=== PATIENT | male | born 2000 | race Caucasian/White ===

== ENCOUNTER 2022-01-28 11:32 | Emergency (ER) | payer OTHER ==
[2022-01-28] MEDS ORDERED: SODIUM CHLORIDE 0.9% 1,000 ML IV STA (11:38)
[2022-01-28] MEDS ORDERED: DIPH,PERTUS(ACELL)TETVAC-LF 0.5 ML VIAL IM ONE (11:39)
--- NOTE | 2022-01-28 11:50 | ED ---
Trauma HPI - General Source: patient, family, EMS, RN notes reviewed Mode of arrival: EMS - History of Present Illness MD Complaint: other <Navin Montiel - Last Filed: 01/28/22 15:00> <Jazmin Morales - Last Filed: 01/28/22 16:47> - General Stated Complaint: [facility] Hand injury Time Seen by Provider: 01/28/22 11:32 - History of Present Illness Initial Comments: 21-year-old male with a benign past medical history who got his right index and middle fingers caught in a rolling press prior to arrival at work it took approximately 1 hour and 15 minutes to get him free from the press. No other injuries reported he complains of pain to his right index finger and per paramedics there was laceration of the right thumb right middle finger. No other injury reported no complaints of nausea vomiting fevers chills sweats he's not sure when his last tetanus shot was he is got no ALLERGIES to medications (Navin Montiel) - Related Data Previous Rx's Medication Instructions Recorded Cephalexin [Keflex] 500 mg PO Q6HR 1 Days #40 cap 01/28/22 HYDROcodone/APAP 7.5-325MG [[place] 1 tab PO Q6HR PRN 3 Days #12 tab 01/28/22 7.5-325] Allergies Allergy/AdvReac Type Severity Reaction Status Date / Time No Known Allergies Allergy Verified 01/28/22 13:11 Review of Systems ROS Other: All systems not noted in ROS Statement are negative. <Navin Montiel - Last Filed: 01/28/22 15:00> ROS Other: All systems not noted in ROS Statement are negative. <Jazmin Morales - Last Filed: 01/28/22 16:47> ROS Statement: Those systems with pertinent positive or pertinent negative responses have been documented in the HPI. General Exam General appearance: alert, in no apparent distress, anxious Head exam: Present: atraumatic, normocephalic, normal inspection Eye exam: Present: normal appearance, PERRL, EOMI. Absent: scleral icterus, conjunctival injection, periorbital swelling ENT exam: Present: normal exam, mucous membranes moist Neck exam: Present: normal inspection, full ROM. Absent: tenderness, meningismus, lymphadenopathy Respiratory exam: Present: normal lung sounds bilaterally. Absent: respiratory distress, wheezes, rales, rhonchi, stridor Cardiovascular Exam: Present: regular rate, normal rhythm, normal heart sounds. Absent: systolic murmur, diastolic murmur, rubs, gallop, clicks Extremities exam: Present: tenderness, other (Reevaluation the right hand reveals proximal T7 70 laceration of the/back to the right middle finger no active bleeding seen at this time abrasion seen over the PIP dorsal aspect of the ring finger no active bleeding evidence of some discoloration to the right index finger with partially 3 cm mushtaq). Absent: full ROM Neurological exam: Present: alert (Some diminished sensation to the right index finger), oriented X3, CN II-XII intact Psychiatric exam: Present: normal affect, anxious Skin exam: Present: warm, dry. Absent: intact, normal color <Navin Montiel - Last Filed: 01/28/22 15:00> - General Exam Comments Initial Comments: This a well-developed well-nourished awake alert oriented times female with a [place] Coma Scale of 15 (Navin Montiel) Course Vital Signs 01/28/22 01/28/22 01/28/22 11:38 12:17 13:20 Temperature 98.2 F Pulse Rate 80 78 Respiratory 18 18 Rate Blood Pressure 132/67 137/75 118/72 O2 Sat by Pulse 97 98 96 Oximetry 01/28/22 01/28/22 15:00 16:00 Temperature Pulse Rate 80 69 Respiratory 18 18 Rate Blood Pressure 130/78 117/68 O2 Sat by Pulse 98 96 Oximetry Procedures - Laceration Laceration #1 Consent Obtained: verbal consent Indication: laceration Site: hand Size (cm): 2 (2cm laceration on the dorsal aspect of the right third finger and 4cm laceration to the ventral aspect of the right pointer finger.) Description: linear, flap, contaminated Depth: simple, single layer Sedation/Analgesia: none Anesthetic Used: lidocaine 1% Anesthesia Technique: local infiltration, nerve block Amount (mls): 7 Pre-repair: wound explored, irrigated extensively, extensive debridement Type of Sutures: nylon Size of Sutures: 5-0 Number of Sutures: 20 (5 in the middle finger and 15 in the pointer finger) Technique: simple, interrupted <Jazmin Morales - Last Filed: 01/28/22 16:47> Medical Decision Making - Lab Data Result diagrams: 01/28/22 11:58 01/28/22 11:58 - Radiology Data Radiology results: report reviewed (Imaging reviewed no evidence of acute fractures identified. Some soft tissue injury noted), image reviewed <Navin Montiel - Last Filed: 01/28/22 15:00> - Lab Data Result diagrams: 01/28/22 11:58 01/28/22 11:58 <Jazmin Morales - Last Filed: 01/28/22 16:47> - Medical Decision Making I did reevaluate patient on multiple occasions he is getting improvement function and sensation to his extremities the lacerations are being repaired by Kinj[facility]. Patient will follow-up [facility] to be seen by Ty Landeros after 1 PM. Elevation and ice bundle dressing oral antibiotics as well as pain medication. Begin on reevaluation patient is having improved sensation still diminished sensation to the right index finger but the other portion of the hand and fingers have intact sensation and capillary refill is less than 2 seconds in all digits. (Navin Montiel) - Lab Data Lab Results 01/28/22 01/28/22 01/28/22 Range/Units 11:58 11:58 11:58 WBC 4.9 (3.8-10.6) k/uL RBC 5.19 (4.30-5.90) m/uL Hgb 16.2 (13.0-17.5) gm/dL Hct 46.8 (39.0-53.0) % MCV 90.1 (80.0-100.0) fL MCH 31.2 (25.0-35.0) pg MCHC 34.7 (31.0-37.0) g/dL RDW 13.4 (11.5-15.5) % Plt Count 209 (150-450) k/uL MPV 7.9 Neutrophils % 73 % Lymphocytes % 19 % Monocytes % 5 % Eosinophils % 1 % Basophils % 0 % Neutrophils # 3.6 (1.3-7.7) k/uL Lymphocytes # 0.9 L (1.0-4.8) k/uL Monocytes # 0.2 (0-1.0) k/uL Eosinophils # 0.0 (0-0.7) k/uL Basophils # 0.0 (0-0.2) k/uL PT 10.6 (9.0-12.0) sec INR 1.0 (<1.2) APTT 19.9 L (22.0-30.0) sec Sodium 138 (137-145) mmol/L Potassium 4.6 (3.5-5.1) mmol/L Chloride 102 (98-107) mmol/L Carbon Dioxide 28 (22-30) mmol/L Anion Gap 8 mmol/L BUN 16 (9-20) mg/dL Creatinine 0.92 (0.66-1.25) mg/dL Est GFR (CKD-EPI)AfAm >90 (>60 ml/min/1.73 sqM) Est GFR (CKD-EPI)NonAf >90 (>60 ml/min/1.73 sqM) Glucose 93 (74-99) mg/dL Plasma Lactic Acid Vinh (0.7-2.0) mmol/L Calcium 9.7 (8.4-10.2) mg/dL Total Bilirubin 0.8 (0.2-1.3) mg/dL AST 26 (17-59) U/L ALT 26 (4-49) U/L Alkaline Phosphatase 92 (38-126) U/L Creatine Kinase (55-170) U/L Total Protein 7.8 (6.3-8.2) g/dL Albumin 4.7 (3.5-5.0) g/dL Blood Type Blood Type Confirm Blood Type Recheck Bld Type Recheck Status Antibody Screen Spec Expiration Date 01/28/22 01/28/22 01/28/22 Range/Units 11:58 11:58 11:58 WBC (3.8-10.6) k/uL RBC (4.30-5.90) m/uL Hgb (13.0-17.5) gm/dL Hct (39.0-53.0) % MCV (80.0-100.0) fL MCH (25.0-35.0) pg MCHC (31.0-37.0) g/dL RDW (11.5-15.5) % Plt Count (150-450) k/uL MPV Neutrophils % % Lymphocytes % % Monocytes % % Eosinophils % % Basophils % % Neutrophils # (1.3-7.7) k/uL Lymphocytes # (1.0-4.8) k/uL Monocytes # (0-1.0) k/uL Eosinophils # (0-0.7) k/uL Basophils # (0-0.2) k/uL PT (9.0-12.0) sec INR (<1.2) APTT (22.0-30.0) sec Sodium (137-145) mmol/L Potassium (3.5-5.1) mmol/L Chloride (98-107) mmol/L Carbon Dioxide (22-30) mmol/L Anion Gap mmol/L BUN (9-20) mg/dL Creatinine (0.66-1.25) mg/dL Est GFR (CKD-EPI)AfAm (>60 ml/min/1.73 sqM) Est GFR (CKD-EPI)NonAf (>60 ml/min/1.73 sqM) Glucose (74-99) mg/dL Plasma Lactic Acid Vinh 1.4 (0.7-2.0) mmol/L Calcium (8.4-10.2) mg/dL Total Bilirubin (0.2-1.3) mg/dL AST (17-59) U/L ALT (4-49) U/L Alkaline Phosphatase (38-126) U/L Creatine Kinase 187 H (55-170) U/L Total Protein (6.3-8.2) g/dL Albumin (3.5-5.0) g/dL Blood Type B Positive Blood Type Confirm Blood Type Recheck No Previous Record Bld Type Recheck Status CABO Indicated Antibody Screen NEGATIVE Spec Expiration Date 01/31/2022235701/28/22 Range/Units 12:03 WBC (3.8-10.6) k/uL RBC (4.30-5.90) m/uL Hgb (13.0-17.5) gm/dL Hct (39.0-53.0) % MCV (80.0-100.0) fL MCH (25.0-35.0) pg MCHC (31.0-37.0) g/dL RDW (11.5-15.5) % Plt Count (150-450) k/uL MPV Neutrophils % % Lymphocytes % % Monocytes % % Eosinophils % % Basophils % % Neutrophils # (1.3-7.7) k/uL Lymphocytes # (1.0-4.8) k/uL Monocytes # (0-1.0) k/uL Eosinophils # (0-0.7) k/uL Basophils # (0-0.2) k/uL PT (9.0-12.0) sec INR (<1.2) APTT (22.0-30.0) sec Sodium (137-145) mmol/L Potassium (3.5-5.1) mmol/L Chloride (98-107) mmol/L Carbon Dioxide (22-30) mmol/L Anion Gap mmol/L BUN (9-20) mg/dL Creatinine (0.66-1.25) mg/dL Est GFR (CKD-EPI)AfAm (>60 ml/min/1.73 sqM) Est GFR (CKD-EPI)NonAf (>60 ml/min/1.73 sqM) Glucose (74-99) mg/dL Plasma Lactic Acid Vinh (0.7-2.0) mmol/L Calcium (8.4-10.2) mg/dL Total Bilirubin (0.2-1.3) mg/dL AST (17-59) U/L ALT (4-49) U/L Alkaline Phosphatase (38-126) U/L Creatine Kinase (55-170) U/L Total Protein (6.3-8.2) g/dL Albumin (3.5-5.0) g/dL Blood Type Blood Type Confirm B Positive Blood Type Recheck Bld Type Recheck Status Antibody Screen Spec Expiration Date Disposition Is patient prescribed a controlled substance at d/c from ED?: Yes When asked, does pt state using other controlled substances?: No If prescribed controlled substance>3 days was MAPS reviewed?: Prescribed <3 Days If opioid is for acute pain is fill amount 7 days or less?: Yes If Rx opioid, was Start Talking consent form obtained?: Yes Decision Date: 01/28/22 Decision Time: 15:01 <Navin Montiel - Last Filed: 01/28/22 15:00> <Jazmin Morales - Last Filed: 01/28/22 16:47> Clinical Impression: Crushing injury of right hand, Finger laceration, Contusion of right hand including fingers Disposition: HOME SELF-CARE Condition: Good Additional Instructions: Follow-up tomorrow with [facility] after 1 PM and [facility] office. Elevation, ice, bundle dressing. Prescriptions: Cephalexin [Keflex] 500 mg PO Q6HR 1 Days #40 cap HYDROcodone/APAP 7.5-325MG [[place] 7.5-325] 1 tab PO Q6HR PRN 3 Days #12 tab PRN Reason: Pain Referrals: None,Stated [Primary Care Provider] - 1-2 days Yanelis Burnham DO [Doctor of Osteopathic Medicine] - 1-2 days
[2022-01-28] MEDS ORDERED: HYDROmorphone 1 MG/ML 1 ML SYRINGE IVP STA ×2 (12:00→13:29)
[2022-01-28 12:15] LABS: Basophils % (A) 0 %; Eosinophils % (A) 1 %; HCT 46.8 % (39.0-53.0); HGB 16.2 gm/dL (13.0-17.5); Lymphocytes # (A) 0.9 k/uL (1.0-4.8); Lymphocytes % (A) 19 %; MCH 31.2 pg (25.0-35.0); MCHC 34.7 g/dL (31.0-37.0); MCV 90.1 fL (80.0-100.0); Mean Platelet Volume 7.9; Monocytes # (A) 0.2 k/uL (0-1.0); Monocytes % (A) 5 %; Neutrophils # (A) 3.6 k/uL (1.3-7.7); Neutrophils % (A) 73 %; Platelet Count 209 k/uL (150-450); RBC 5.19 m/uL (4.30-5.90); RDW 13.4 % (11.5-15.5); WBC 4.9 k/uL (3.8-10.6)
[2022-01-28 12:18] VITALS: RESP 18
[2022-01-28 12:25] LABS: ALT 26 U/L (4-49); AST 26 U/L (17-59); African American GFR (CKD) >90 (>60 ml/min/1.73 sqM); Albumin 4.7 g/dL (3.5-5.0); Alkaline Phosphatase 92 U/L (38-126); Anion Gap 8 mmol/L; Blood Urea Nitrogen 16 mg/dL (9-20); Calcium 9.7 mg/dL (8.4-10.2); Carbon Dioxide 28 mmol/L (22-30); Chloride 102 mmol/L (98-107); Glucose 93 mg/dL (74-99); Non-African American GFR(CKD) >90 (>60 ml/min/1.73 sqM); Potassium 4.6 mmol/L (3.5-5.1); Sodium 138 mmol/L (137-145); Total Bilirubin 0.8 mg/dL (0.2-1.3); Total Protein 7.8 g/dL (6.3-8.2)
--- NOTE | 2022-01-28 12:27 | XR ---
EXAMINATION TYPE: XR hand complete RT DATE OF EXAM: 01/28/2022 CLINICAL HISTORY: Pain after crushing injury. TECHNIQUE: Frontal, lateral and oblique images of the right hand are obtained. COMPARISON: None. FINDINGS: Incomplete extension of the fourth and fifth fingers makes evaluation at this level slight ly suboptimal. No acute displaced fracture in the right hand is clearly seen. Moderate to severe soft tissue swelling over the second finger with more mild soft tissue swelling throughout the third thro ugh fifth fingers is present. IMPRESSION: As above.
[2022-01-28 12:31] LABS: Prothrombin Time 10.6 sec (9.0-12.0)
[2022-01-28 12:43] LABS: Partial Thromboplastin Time 19.9 sec (22.0-30.0)
[2022-01-28] MEDS ORDERED: LIDOCAINE 1% INJ 10MG/ML (5 ML VIAL-PF) SQ ONE ×2 (13:08→15:23)
[2022-01-28] MEDS ORDERED: HYDROcodone/APAP 5-325MG 1 EACH TAB PO STA (16:21)
[2022-01-28] MEDS ORDERED: BACITRACIN OINT 1 EACH PACKET TOPICAL ONE (16:23)
[2022-01-28 16:45] LABS: Amphetamine Screen,Urine Not Detected (NotDetected); Barbiturate Screen,Urine Not Detected (NotDetected); Benzodiazepines Screen,Urine Not Detected (NotDetected); Cocaine Screen,Urine Not Detected (NotDetected); Methadone Screen, Urine Not Detected (NotDetected); Opiate Screen,Urine Detected (NotDetected); Oxycodone Screen, Urine Not Detected (NotDetected); Phencyclidine Screen,Urine Not Detected (NotDetected); Tricyclic Antidepressant,Urine Not Detected (NotDetected); Urn Cannabinoid Scrn Detected (NotDetected)
[2022-01-28 16:46] VITALS: BP 119/74; PULSE 76; TEMP 98.4
== END 2022-01-28 16:46 | disposition home or self-care (01) ==
LOC: EC 11:32
DX: S67.20XA Crushing injury of unspecified hand, initial encounter (principal); S60.221A Contusion of right hand, initial encounter; S67.21XA Crushing injury of right hand, initial encounter; S61.219A Laceration without foreign body of unspecified finger without damage to nail, initial encounter; W23.0XXA Caught, crushed, jammed, or pinched between moving objects, initial encounter
CPT/HCPCS: 36415; 86900; 86901; 80053; 82550; 83605; 85025; 85610; 85730; 86850; 80306; 73130; 90715; 12001; 90471; 99283; 96365; 96375; 96376; 96361; J0690; J2001; J1170